=== PATIENT | male | born 1935 | race Caucasian/White ===

== ENCOUNTER 2016-11-29 17:27 | Inpatient (IN) | payer MEDICARE ==
[~2016-11-29] VITALS: Ht 167.6 cm; Wt 96.3 kg
[2016-11-29 17:29] VITALS: BP 165/77; PULSE 102; RESP 20; TEMP 98.2; O2SAT 92
[2016-11-29 21:24] VITALS: BP 125/71; PULSE 99; RESP 16; O2SAT 99
[2016-11-29] MEDS ORDERED: HYDR25TA5 PO (21:34)
[2016-11-29] MEDS ORDERED: PERP2TAB18 PO (21:34)
[2016-11-29] MEDS ORDERED: LOVA20TA PO (21:34)
[2016-11-29] MEDS ORDERED: NABU1TAB37 PO (21:34)
[2016-11-29] MEDS ORDERED: ALLO300T2 PO (21:34)
--- NOTE | 2016-11-29 21:34 | PD ---
HPI Chief Complaint: Psychiatric Symptoms Time Seen by Provider: 21:02 Travel History International Travel<30 days: No Contact w/Intl Traveler<30days: No Traveled to known affect area: No History of Present Illness HPI The patient is a 81-year-old male who presents emergency department with family from [facility] for psychiatric evaluation. The patient appears to have a history of psychosis and previous schizophrenia, according to the brother, the patient was admitted in a psychiatric hospital in [place] for approximately 6 years where he did not speak until he was placed on antipsychotics. The patient has been taking his medications regularly, until recently, and started having delusions. The patient believes that a black snake and a COBRA fluid his mouth and there are now "fighting it out "in his stomach. The patient does complain of intermittent abdominal pain secondary to the snakes fighting, but denies any headache, chest, shortness breath, nausea, vomiting, or other complaints. He denies any auditory hallucinations. He denies any suicidal or homicidal ideation. The patient had a workup performed at [facility] including CT the brain and laboratory evaluation which was apparently unremarkable and the patient was discharged with family members and advised to come to [facility]. [facility] Past Medical History Narrative Medical Psychosis Past Surgical History Narrative Surgical Noncontributory Social History Tobacco Use: No Substance Use: No Allergies-Medications (Allergen,Severity, Reaction): Coded Allergies: No Known Allergies (Unverified , 11/29/16) Reported Meds & Prescriptions Reported Meds & Active Scripts Active Reported Nabumetone 500 Mg Tab 500 Mg PO BID Hydrochlorothiazide 25 Mg Tab 25 Mg PO DAILY Allopurinol 300 Mg Tab 300 Mg PO DAILY Lovastatin 20 Mg Tab 20 Mg PO DAILY Perphenazine 2 Mg Tab 2 Mg PO Q12HR Review of Systems Except as stated in HPI: all other systems reviewed are Neg General / Constitutional: No: Fever Cardiovascular: No: Chest Pain or Discomfort Respiratory: No: Shortness of Breath Gastrointestinal: Positive: Abdominal Pain (secondary to the snakes fighting in his stomach, currently resolved), No: Nausea, Vomiting Psychiatric: Positive: Disorder of Thought, Other (active delusions), No: Suicidal Ideations, Substance Abuse, Homicidal Ideation Physical Exam Narrative GENERAL: Awake, alert, pleasant 81-year-old male who appears his stated age and is in no acute respiratory distress. SKIN: Warm and dry. HEAD: Atraumatic. Normocephalic. EYES: Pupils equal and round. No injection or drainage. ENT: No nasal bleeding or discharge. Mucous membranes pink and moist. NECK: Trachea midline. No JVD. CARDIOVASCULAR: Regular rate and rhythm. No murmur appreciated. RESPIRATORY: No accessory muscle use. Clear to auscultation. Breath sounds equal bilaterally. GASTROINTESTINAL: Abdomen soft, non-tender, nondistended. No rebound tenderness. MUSCULOSKELETAL: No obvious deformities. No clubbing. No cyanosis. No edema. NEUROLOGICAL: Awake and alert. No obvious cranial nerve deficits. Motor grossly within normal limits. Normal speech. Nonfocal. 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 PSYCHIATRIC: Appropriate mood and affect; insight and judgment normal. Data Data Last Documented VS Vital Signs Date Time Temp Pulse Resp B/P Pulse Ox O2 Delivery O2 Flow Rate FiO2 11/29/16 21:24 99 16 125/71 99 Room Air 11/29/16 17:29 98.2 Orders Psych Screen (11/29/16 21:24) MDM Medical Decision Making Medical Screen Exam Complete: Yes Emergency Medical Condition: Yes Medical Record Reviewed: Yes Interpretation(s) Records are obtained from [facility]. Chest x-ray reveals mild increased density in the left lung base may represent atelectasis or early infiltrate. CT the brain reveals no evidence of acute intracranial abnormality. At least mild global parenchymal volume loss, commensurate to age and without definite focality. Mild chronic small vessel ischemic changes. CBC reveals white count 9.7, hemoglobin 14.3, hematocrit 42.6, platelet count 172 Sodium 137, potassium 3.8, chloride 96, CO2 29, anion gap 13, glucose 131, BUN 21, creatinine 1.27, calcium 10, GFR 53.4, albumin 4.3, total protein 7.3, AST 19, ALT 13, alkaline phosphatase 103, total bili 0.5 Acetaminophen level less than 15.0 Salicylate level less than 0.3 Alcohol blood less than 10 UA negative Tox screen negative Differential Diagnosis Differential diagnosis includes schizophrenia, psychosis, delirium, intracranial tumor, noncompliance. Narrative Course The patient signed a form so we could obtain records of the CT and laboratory evaluation that was performed in [facility]. Psychiatric evaluation was ordered. The patient is medically cleared to be evaluated by psychiatry. The patient's CT the brain, chest x-ray, laboratory evaluation is unremarkable that was performed in [facility]. The patient is medically clear to be evaluated by psychiatry. Disposition as per psych. Diagnosis Primary Impression: Psychosis Qualified Code: F29 - Psychosis, unspecified psychosis type Condition: Stable Dimitry Light MD Nov 29, 2016 21:34
[2016-11-30 03:07] VITALS: BP 160/80
[2016-11-30 03:45] VITALS: BP 159/79; PULSE 91; RESP 18; TEMP 98; O2SAT 97
[2016-11-30] MEDS ORDERED: LORazepam 1 MG TAB PO PRN (04:45)
[2016-11-30] MEDS ORDERED: LORazepam 2 MG/ML VIAL IM PRN (04:45)
[2016-11-30] MEDS: ALLOPURINOL 300 MG TAB PO SCH (09:00)
[2016-11-30] MEDS: NABUMETONE 500 MG TAB PO SCH ×2 (09:00→20:39)
[2016-11-30] MEDS: NICOTINE 21 MG/24 HR PATCH T-DERMAL SCH (09:00)
[2016-11-30] MEDS: PRAVASTATIN SOD 20 MG TAB PO SCH (09:00)
[2016-11-30] MEDS: HYDROCHLOROTHIAZIDE 25 MG TAB PO SCH (09:00)
--- NOTE | 2016-11-30 18:42 | MH ---
cc: MARIA INES BOYLE DATE OF ADMISSION 11/30/2016 PRESENTING CHIEF COMPLAINT AND HISTORY OF PRESENT ILLNESS This 81-year-old white male was brought to the emergency room of this hospital by family because of increasing delusions. He was initially evaluated at [facility] where he reportedly was preoccupied with delusions believing that there were snakes in his stomach and they were fighting with each other. The medical workup done there was essentially unremarkable. This included chest x-ray which showed mild increased density in the left lung base, may represent atelectasis or early infiltrate. CT scan of the brain was negative for any acute intracranial abnormality. Global parenchymal volume loss commensurate with the patient's age, mild chronic small vessel ischemic changes, CBC with differential unremarkable. Urine drug screen negative. Blood alcohol level less than three. In the emergency room of this hospital, he was also evaluated by the physician and was considered medically stable for discharge. While in the emergency room, he was also evaluated by psychiatric screener and the case was discussed with me. The family reported that he was previously admitted to psychiatric facility in [place] for six years. He has not been taking any psychotropic medications or following up with a psychiatrist recently. According to psychiatric screener, he seemed well oriented and understood the nature of his illness and the need for psychiatric hospitalization, however, the Koch Act was initiated because he could not " ". Prior to evaluation, case was discussed with the nursing staff on the unit who indicated since admission he has been calm and cooperative, although very preoccupied with delusions believing that snakes were in his body and "they were fighting it out". He has not exhibited any aggressive or self-destructive behavior nor has he made any threats of harm to self or others. Present during this evaluation was NILS Cai. At the time of this evaluation, Mr. Snow was pleasant and cooperative. He was in the psychiatric hospital and, when asked about his understanding of the reason for this hospitalization he responded, "I am here because there are snakes in my body. One of them is called Cobra. They are fighting it out. One of the snakes went into my brain". He could not give a clear picture as to how long he has been experiencing this "it has been going on for long time". He denied experiencing any auditory hallucinations. He stated that he has not been sleeping too well lately. On direct questioning, he denied any persistent feelings of sadness or irritability. He denied entertaining any suicidal thoughts or any previous suicide attempts. On further questioning, he did not give any history suggestive of bipolar affective disorder. PAST PSYCHIATRIC HISTORY He was somewhat sketchy in regards to the onset of his psychiatric illness. He did acknowledge that he was once admitted to a psychiatric facility in [place] for six years. He could not give detailed information in regards to his symptoms leading to that hospitalization. Since then, he has been admitted to various psychiatric facilities including one to [place], [place]. Again, he could not give much information regarding his symptoms or the medication he received while there. From what the psychiatric screener could obtain, he was on Trilitron 2 mg twice a day which he had discontinued. It is not clear as to whether or not he is seeing any psychiatrist as an outpatient either. PAST MEDICAL HISTORY He has history of hypertension, gout and hyperlipidemia. He denied any drug allergies. He had some unspecified surgery on his hand due to a dog bite. FAMILY HISTORY His father is . He lives with his mother and a brother and brother's . He has another brother who lives in [facility]. He denied any family history of psychiatric illness or substance abuse. PERSONAL AND SOCIAL HISTORY He grew up in [place]. He gave inconsistent responses in regards to his education level, i.e., initially stated that he went up to 4th grade but then stated that he finished high school. He stated he was "slow learner". 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 He is on disability. He has never been and has no children. He denied any alcohol or drug abuse. He denied any history of involvement with the law. CLINICAL OBSERVATION/MENTAL STATUS EXAM At the time of this evaluation, Mr. Snow presented as a casually dressed, reasonably well-groomed white male who looked his stated age. He was overall pleasant, polite and cooperative with this interviewer. He displayed somewhat limited ability to give details in regards to symptomatology during previous hospitalizations/medications. No overt anger or hostility was noticed. No bizarre behavioral or mannerisms were noticed. His speech was coherent and appropriate. His affect was pleasant. He showed full range of emotions, i.e., smiled and laughed frequently. Subjectively, he described his mood as "I've been feeling just fine". Thought processes did not reveal any looseness of association or flight of ideas. As mentioned, he was preoccupied with delusions believing that there were snakes in his stomach and they were fighting with each other. No auditory or visual hallucinations were noticed or reported. He denied active suicidal or homicidal ideations or intent at this time. He denied any previous suicide attempts. Cognitive functions - he was alert, oriented to place and person, not to time. He initially stated that he did not know what month it was, but when told it was November he accepted it. Memory - immediate he could do 4 digits forward, 3 digits backward. Recent, he could recall 3/3 objects after 10 minutes. Remote, he could recall presidents up to President Inocente Chaparro. His attention and concentration was somewhat impaired. He could not do simple calculations i.e. 9+8 he could not, however, 10+10 he could do i.e., "20". He could not abstract proverbs. His fund of knowledge was also felt to be somewhat limited, for example, he did not know the capital of [facility], but when given hint as to where [place] was he said "yes, it is in [place]". His judgment and insight was felt to be fair. REVIEW OF SYSTEMS He denied any diarrhea, vomiting or abdominal pain. He denied any dysuria, hematuria or frequency. He denied any chest pain, palpitation, dyspnea on exertion. He denied muscle weakness, numbness or any history of seizures. PHYSICAL EXAMINATION Physical examination was not done as this has already been done in the emergency room. No acute medical issues identified. No gross neurological deficits noticed at this time. DIAGNOSTIC IMPRESSION [place] I: Schizophrenia chronic undifferentiated type acute exacerbation. [place] II: Mild mental retardation. [place] III: Hypertension, hyperlipidemia, gout. [place] IV: Severity of psychosocial stressors moderate i.e. chronic psychiatric illness, limited financial resources. [place] V: Current GAF score 40. FORMULATION AND TREATMENT PLAN Based on this evaluation and the background information available to me at this time, Mr. Snow is experiencing delusions which appears to be fixed. He has previously been admitted to various psychiatric facilities, however, the details of the circumstances leading to those hospitalizations/symptomatology is not very clear at this time. He reportedly carries a diagnosis of schizophrenia. The current decompensation appears to be due to noncompliance with medication/outpatient follow up. To control his psychotic symptoms, he will be started on Risperdal and the dose will be gradually titrated up as warranted by his condition. Simultaneously, he will be involved in individual psychotherapy primarily supportive and educative in nature. He will participate in various other unit activities i.e. occupational therapy, recreational therapy, group therapy. He is exhibiting mild cognitive deficits which could be related to his lower intellectual level. As such, basic dementia workup will be ordered. IDENTIFIED PROBLEMS 1. Psychosis. 2. Current psychosocial stressors. ASSETS 1. He is verbal. 2. Supportive family Estimated length of stay is 5-7 days. MD ANDREEA Bhakta/ /4:18 PM /6:06 PM
[2016-11-30 19:01] VITALS: BP 138/73; PULSE 78; RESP 18; TEMP 98.9; O2SAT 100
[2016-11-30] MEDS: REMOVE OLD NICOTINE PATCH T-DERMAL SCH (20:40)
[2016-11-30] MEDS: risperiDONE ODT 0.25 MG TAB PO SCH (21:00)
[2016-12-01 05:41] VITALS: BP 115/79; PULSE 94; RESP 18; TEMP 97.5; O2SAT 100
[2016-12-01 07:50] LABS: AUTOMATED NEUTROPHIL # 5.5 TH/MM3 (1.8-7.7); BASOPHIL % 0.4 % (0.0-2.0); EOSINOPHIL # 0.7 TH/MM3 (0-0.4); EOSINOPHIL % 6.7 % (0.0-4.0); HEMATOCRIT 43.8 % (39.0-51.0); HEMO FLAGS DIFF FINAL; LYMPH % 25.9 % (9.0-44.0); LYMPHOCYTE # 2.5 TH/MM3 (1.0-4.8); MEAN CELL VOLUME 95.4 FL (80.0-100.0); MEAN CORPUSCULAR HEMOGLOBIN 31.9 PG (27.0-34.0); MEAN CORPUSCULAR HGB CONC 33.5 % (32.0-36.0); PLATELET COUNT 183 TH/MM3 (150-450); RED BLOOD COUNT 4.59 MIL/MM3 (4.50-5.90); RED CELL DISTRIBUTION WIDTH 14.7 % (11.6-17.2); WHITE BLOOD COUNT 9.7 TH/MM3 (4.0-11.0)
[2016-12-01 08:24] LABS: ALKALINE PHOSPHATASE 102 U/L (45-117); ALT (GPT) 20 U/L (12-78); ANION GAP 7 MEQ/L (5-15); AST (GOT) 22 U/L (15-37); BICARBONATE 33.2 MEQ/L (21.0-32.0); BLOOD UREA NITROGEN 17 MG/DL (7-18); CHLORIDE 98 MEQ/L (98-107); FREE T4 1.17 NG/DL (0.76-1.46); GLOMERULAR FILTRATION RATE 60 ML/MIN (>89); HDL CHOLESTEROL 60.9 MG/DL (40.0-60.0); LDL CHOLESTEROL 43 MG/DL (0-99); MAGNESIUM 1.6 MG/DL (1.5-2.5); POTASSIUM 4.4 MEQ/L (3.5-5.1); SODIUM (NA) 138 MEQ/L (136-145); TOTAL BILIRUBIN ADULT 0.6 MG/DL (0.2-1.0)
[2016-12-01 08:43] LABS: FREE T4 1.17 NG/DL (0.76-1.46)
[2016-12-01] MEDS: NABUMETONE 500 MG TAB PO SCH ×2 (09:00→20:35)
[2016-12-01] MEDS: ALLOPURINOL 300 MG TAB PO SCH (09:00)
[2016-12-01] MEDS: NICOTINE 21 MG/24 HR PATCH T-DERMAL SCH (09:00)
[2016-12-01] MEDS: risperiDONE ODT 0.25 MG TAB PO SCH ×2 (09:00→20:35)
[2016-12-01] MEDS: PRAVASTATIN SOD 20 MG TAB PO SCH (09:00)
[2016-12-01] MEDS: HYDROCHLOROTHIAZIDE 25 MG TAB PO SCH (09:00)
[2016-12-01] MEDS ORDERED: INFLUENZA VIRUS VACCINE (QUADRIVALENT) 0.5 ML SYR IM ONE (10:00)
[2016-12-01] MEDS ORDERED: PNEUMOCOCCAL POLYVALENT INJ 25 MCG/0.5 ML SYR IM ONE (10:00)
[2016-12-01 14:32] LABS: HEMOGLOBIN A1a 0.9 %; HEMOGLOBIN A1b 0.8 %; HEMOGLOBIN Ao 85.7 %; HEMOGLOBIN LA1C 2.1 %; HEMOGLOBIN P3 3.7 %
--- NOTE | 2016-12-01 14:50 | EKG ---
Date Performed: 11/30/2016 Time Performed: 20:04:48 PTAGE: 81 years EKG: ATRIAL FIBRILLATION POSSIBLE RIGHT VENTRICULAR CONDUCTION DELAY NONSPECIFIC T-WAVE ABNORMAL ITY ABNORMAL RHYTHM ECG NO PREVIOUS TRACING DOCTOR: Ben Nye Interpretating Date/Time 12/01/2016 14:47:10
[2016-12-01 18:08] VITALS: BP 121/64; PULSE 68; RESP 18; TEMP 98.1; O2SAT 99
[2016-12-01] MEDS: TEMAZEPAM 15 MG CAP PO PRN (20:35)
[2016-12-01] MEDS: REMOVE OLD NICOTINE PATCH T-DERMAL SCH (21:00)
[2016-12-02 05:55] VITALS: BP 112/57; PULSE 88; RESP 16; TEMP 97.3; O2SAT 98
[2016-12-02] MEDS: risperiDONE ODT 0.25 MG TAB PO SCH ×2 (08:51→20:32)
[2016-12-02] MEDS: NABUMETONE 500 MG TAB PO SCH ×2 (08:51→20:32)
[2016-12-02] MEDS: HYDROCHLOROTHIAZIDE 25 MG TAB PO SCH (08:52)
[2016-12-02] MEDS: PRAVASTATIN SOD 20 MG TAB PO SCH (08:52)
[2016-12-02] MEDS: NICOTINE 21 MG/24 HR PATCH T-DERMAL SCH (08:52)
[2016-12-02] MEDS: ALLOPURINOL 300 MG TAB PO SCH (08:52)
[2016-12-02 15:04] LABS: RAPID PLASMA REAGIN SCREEN NON-REACTIVE (NON-REACTVE)
[2016-12-02 15:56] LABS: ANA SCREEN NEG (NEG)
--- NOTE | 2016-12-02 16:17 | PD.CONS ---
HPI Service [facility] Hospitalists Consult Requested By Dr. Albino Anna Reason for Consult Abnormal EKG Primary Care Physician Adams Montoya MD Diagnoses: History of Present Illness Mr. Snow is a 81 y/o WM with Schizophrenia, HTN, Hyperlipidemia, and gout who presented to the ED with family from [facility] for psychiatric evaluation. The patient has a history of psychosis and schizophrenia and was previously admitted in a psychiatric hospital in [place] for approximately 6 years where he reportedly did not speak until he was placed on antipsychotics. According to the ER notes the patient had been taking his medications regularly , up until recently and started having delusions. The patient believes that he has two snakes that are "fighting it out "in his stomach and have been doing so "for years." The patient does complain of intermittent abdominal pain secondary to the snakes fighting, but denies any headache, chest pain, palpitations, shortness breath, nausea, vomiting, or auditory hallucinations. He denies any suicidal or homicidal ideation. The patient had a workup performed at [facility], which included a chest x-ray which showed mild increased density in the left lung base, may represent atelectasis or early infiltrate. CT scan of the brain was negative for any acute intracranial abnormality, global parenchymal volume loss commensurate with the patient's age , mild chronic small vessel ischemic changes. CBC reveals white count 9.7, hemoglobin 14.3, hematocrit 42.6, platelet count 172. CMP noted Sodium 137, potassium 3.8, chloride 96, CO2 29, anion gap 13, glucose 131, BUN 21, creatinine 1.27, calcium 10, GFR 53.4, albumin 4.3, total protein 7.3, AST 19, ALT 13, alkaline phosphatase 103, total bili 0.5. Acetaminophen level less than 15.0. Salicylate level less than 0.3. Alcohol blood less than 10 UA negative. The patient was discharged with family members and advised to come to [facility]. In the ED here the pt had an EKG which indicated atrial fibrillation with possible right ventricular conduction delay. Pt does not have any history of atrial fibrillation. Review of Systems ROS Limitations: Poor Historian Respiratory: DENIES: Shortness of breath Cardiovascular: DENIES: Chest pain, Palpitations Gastrointestinal: COMPLAINS OF: Abdominal pain Past Family Social History Past Medical History Schizophrenia with psychosis HTN Hyperlipidemia Gout Arthritis Depression Past Surgical History Foot surgery Tonsillectomy Reported Medications -Nabumetone 500 Mg Tab 500 Mg PO BID -Hydrochlorothiazide 25 Mg Tab 25 Mg PO DAILY -Allopurinol 300 Mg Tab 300 Mg PO DAILY -Lovastatin 20 Mg Tab 20 Mg PO DAILY --Perphenazine-Amitriptyline 2-25 Mg PO Q12HR Allergies: Coded Allergies: No Known Allergies (Unverified , 11/29/16) Family History Noncontributory Social History No reported alcohol, tobacco or illicit drug use Physical Exam Vital Signs Vital Signs Date Time Temp Pulse Resp B/P Pulse Ox O2 Delivery O2 Flow Rate FiO2 12/02/16 05:55 97.3 88 16 112/57 98 12/01/16 18:08 98.1 68 18 121/64 99 Physical Exam GENERAL: This is a well-nourished, well-developed patient, in no apparent distress. HEENT: Atraumatic. Normocephalic. No temporal or scalp tenderness. No scleral icterus. Airway patent. NECK: Trachea midline, supple, nontender. CARDIO: Irregular. RESP: CTA bilaterally. No wheezes, rales, or rhonchi. ABD: +BS, soft, non-tender, nondistended. EXT: Extremities without clubbing, cyanosis, or edema. NEURO: Awake and alert. Motor and sensory grossly within normal limits. Normal speech. Laboratory Laboratory Tests Test 12/01/16 07:07 White Blood Count 9.7 TH/MM3 Red Blood Count 4.59 MIL/MM3 Hemoglobin 14.7 GM/DL Hematocrit 43.8 % Mean Corpuscular Volume 95.4 FL Mean Corpuscular Hemoglobin 31.9 PG Mean Corpuscular Hemoglobin 33.5 % Concent Red Cell Distribution Width 14.7 % Platelet Count 183 TH/MM3 Mean Platelet Volume 8.2 FL Neutrophils (%) (Auto) 57.0 % Lymphocytes (%) (Auto) 25.9 % Monocytes (%) (Auto) 10.0 % Eosinophils (%) (Auto) 6.7 % Basophils (%) (Auto) 0.4 % Neutrophils # (Auto) 5.5 TH/MM3 Lymphocytes # (Auto) 2.5 TH/MM3 Monocytes # (Auto) 1.0 TH/MM3 Eosinophils # (Auto) 0.7 TH/MM3 Basophils # (Auto) 0.0 TH/MM3 CBC Comment DIFF FINAL Differential Comment Erythrocyte Sedimentation Rate 11 mm/hr Sodium Level 138 MEQ/L Potassium Level 4.4 MEQ/L Chloride Level 98 MEQ/L Carbon Dioxide Level 33.2 MEQ/L Anion Gap 7 MEQ/L Blood Urea Nitrogen 17 MG/DL Creatinine 1.17 MG/DL Estimat Glomerular Filtration 60 ML/MIN Rate Random Glucose 114 MG/DL Hemoglobin A1c 5.6 % Calcium Level 9.6 MG/DL Phosphorus Level 2.8 MG/DL Magnesium Level 1.6 MG/DL Total Bilirubin 0.6 MG/DL Aspartate Amino Transf 22 U/L (AST/SGOT) Alanine Aminotransferase 20 U/L (ALT/SGPT) Alkaline Phosphatase 102 U/L Total Protein 7.3 GM/DL Albumin 3.7 GM/DL Triglycerides Level 50 MG/DL Cholesterol Level 114 MG/DL LDL Cholesterol 43 MG/DL HDL Cholesterol 60.9 MG/DL Cholesterol/HDL Ratio 1.87 RATIO Vitamin B12 Level 744 PG/ML Folate GREATER THAN 20.0 NG/ML Free Thyroxine 1.17 NG/DL Thyroid Stimulating Hormone 3.190 uIU/ML 3rd Gen Anti-Nuclear Antibody Screen NEG Rapid Plasma Reagin NON-REACTIVE Result Diagram: 12/01/1670612/01/16706 Assessment and Plan Problem List: (1) Psychosis Status: Acute Plan: - Pt admitted to psychiatry unit for fixed delusions with reported hx of Schizophrenia. The pt has reportedly been noncompliant with medications. - Management per psychiatry. (2) Atrial fibrillation, controlled Status: Acute Plan: - EKG in the ED indicated atrial fibrillation, rate controlled. - This appears to be a new issue. No previous records of A. fib - TSH/Free T4 are WNL. - Start Metoprolol 12.5mg po BID and stop HCTZ - Monitor BP closely as pt has been running low/normal. - We will start ASA 81mg po daily - He will need to followup as an outpt with Cardiology upon discharge. (3) Schizophrenia Status: Chronic Plan: - Management per Psychiatry (4) HTN (hypertension) Status: Chronic (5) Hyperlipidemia Status: Chronic Assessment and Plan Patient examined. Assessment and plan formulated with Alix Garrison PA-C. I agree with the above. Problem Qualifiers (1) Psychosis: Qualified Code: F29 - Psychosis, unspecified psychosis type Alix Garrison Dec 02, 2016 16:17 Dylan Figueroa DO Dec 05, 2016 23:06
[2016-12-02] MEDS ORDERED: ASPIRIN EC 81 MG TABEC PO ONE (17:00)
[2016-12-02] MEDS ORDERED: PILL SPLITTER OTHER PRN (17:15)
[2016-12-02 17:54] VITALS: BP 153/93; PULSE 83; RESP 16; TEMP 97.4; O2SAT 99
[2016-12-02] MEDS: TEMAZEPAM 15 MG CAP PO PRN (20:32)
[2016-12-02] MEDS: METOPROLOL TARTRATE 25 MG TAB PO SCH (20:32)
[2016-12-02] MEDS: REMOVE OLD NICOTINE PATCH T-DERMAL SCH (20:32)
[2016-12-03 06:34] VITALS: BP 105/63; PULSE 94; RESP 18; TEMP 97.5; O2SAT 94
[2016-12-03] MEDS ORDERED: ASPIRIN EC 81 MG TABEC PO SCH (09:00)
[2016-12-03] MEDS: NICOTINE 21 MG/24 HR PATCH T-DERMAL SCH (09:00)
[2016-12-03] MEDS: NABUMETONE 500 MG TAB PO SCH ×2 (09:00→20:47)
[2016-12-03] MEDS: ALLOPURINOL 300 MG TAB PO SCH (09:13)
[2016-12-03] MEDS: PRAVASTATIN SOD 20 MG TAB PO SCH (09:13)
[2016-12-03] MEDS: METOPROLOL TARTRATE 25 MG TAB PO SCH (09:13)
--- NOTE | 2016-12-03 16:29 | MB ---
cc: CHELITA TERRY MD DATE OF CONSULTATION: 12/03/2016 REASON FOR CONSULTATION: HISTORY This is a 81-year-old gentleman who is admitted to the hospital for delusions. He felt that he had snakes inside that were doing [place]. He was initially admitted to [facility] but was brought to [place] where he subsequently has been admitted to the psychiatric unit. We have been asked to see him in that his initial electrocardiogram demonstrated atrial fibrillation. The patient is a rather poor historian. He denies any history of heart problems and has no symptoms to suggest chest pain, palpitations, lightheadedness or dizziness. His heart rates have been very well controlled and his blood pressure has been normal. No prior history of diabetes, CVA or heart failure have been present. Review of his electrocardiogram demonstrates atrial fibrillation with a controlled ventricular response and a right bundle-branch block. No evidence of heart failure has been present. His chest x-ray has been unremarkable. PAST MEDICAL HISTORY: Otherwise has been stated that he has a history of hypertension, however, this is not borne out by the chart. MEDICATIONS AT HOME: 1. Lovastatin. 2. Hydrochlorothiazide. 3. Allopurinol 4. Nabumetone. ALLERGIES: None. SOCIAL HISTORY: The patient does not smoke, drink or use recreational drugs. PHYSICAL EXAMINATION: He is awake, alert, very cooperative. VITAL SIGNS: Blood pressure is 105/63, pulse approximately 80 and irregular. NECK: There is no neck vein distension. LUNGS: Clear. CARDIOVASCULAR: Irregular rate and rhythm with no murmur or gallop noted. EXTREMITIES: No edema. Peripheral pulses are intact. ASSESSMENT: The patient has atrial fibrillation with a controlled ventricular response at this point in time. His TYRONE 2 Vasc Score equals 1 for age. At this point in time, I do not feel that he will need anticoagulants for thromboembolic control, in any event given his psychiatric problems, reliable use of anticoagulants is probably not a good idea unless they are delivered in a strictly controlled environment. I have ruled in echocardiogram for routine purposes. No further therapy or treatment needs to be done for his atrial fibrillation. MD KEVIN Mcallister/MADELIN /2:15 PM /3:58 PM
[2016-12-03 17:55] VITALS: BP 101/58; PULSE 56; RESP 18; TEMP 98; O2SAT 100
--- NOTE | 2016-12-03 19:01 | EC ---
Study Study Date:12/03/2016 STUDY CONCLUSIONS SUMMARY LEFT VENTRICLE: The cavity size was normal. Wall thickness was normal. Systolic function was mildly reduced. The estimated ejection fraction was in the range of 45% to 50%. Wall motion was normal; there were no regional wall motion abnormalities. If LV function is below 40, please consider prescribing an ACEI or ARB or document rationale for non-use. PROCEDURE DATA STUDY STATUS: Elective. Procedure: Transthoracic echocardiography. Image quality was poor. Scanning was performed from the parasternal, apical, and subcostal acoustic windows. Study completion: The patient tolerated the procedure well. Transthoracic echocardiography. M-mode, complete 2D, complete spectral Doppler, and color Doppler. Height: Height: 66in. Weight: Weight: 206.6lb. Body mass index: BMI: 33.4kg/m^2. Body surface area: BSA: 2.03m^2. Patient status: Inpatient. CARDIAC ANATOMY LEFT VENTRICLE: The cavity size was normal. Wall thickness was normal. Systolic function was mildly reduced. The estimated ejection fraction was in the range of 45% to 50%. Wall motion was normal; there were no regional wall motion abnormalities. AORTIC VALVE: Trileaflet; mildly thickened, mildly calcified leaflets. Doppler: Transvalvular velocity was within the normal range. There was no stenosis. No regurgitation. AORTA: Aortic root: The aortic root was normal in size. MITRAL VALVE: Structurally normal valve. Doppler: Transvalvular velocity was within the normal range. There was no evidence for stenosis. No regurgitation. Peak gradient: 3mm Hg (D). LEFT ATRIUM: The atrium was normal in size. RIGHT VENTRICLE: The cavity size was normal. Wall thickness was normal. PULMONIC VALVE: Doppler: Transvalvular velocity was within the normal range. There was no evidence for stenosis. No regurgitation. TRICUSPID VALVE: Structurally normal valve. Doppler: Transvalvular velocity was within the normal range. No regurgitation. PULMONARY ARTERY: The main pulmonary artery was normal-sized. Systolic pressure was within the normal range. RIGHT ATRIUM: The atrium was normal in size. PERICARDIUM: There was no pericardial effusion. SYSTEMIC VEINS: Inferior vena cava: The vessel was normal in size. Patient weight: 206.6lb _Ejection fraction:_ 65-75% _Fractional shortening:_ 32% up to 5Kg 5-11.5Kg 11.6-22.9Kg 23-45Kg 45-57Kg Aortic Root 7-13 <17 13-22 17-27 17-27 LA diam 6-13 <23 24-38 33-47 37-40 RVID 10-17 7-15 7-15 7-18 8-17 LVIDd 12-22 <32 24-38 33-47 37-40 LVPW 2-4 3-6 5-7 6-8 7-8 IVS 2-4 3-6 5-7 6-8 7-8 BASIC MEASUREMENTS ADULT Normal Left ventricle LV internal dimension, ED, chordal level, 48.5 mm 43-52 PLAX LV internal dimension, ES, chordal level, *39.4 mm 23-38 PLAX Fractional shortening, chordal level, PLAX *19 % >29 LV posterior wall thickness, ED 6.54 mm IVS/LVPW ratio, ED 1.05 <1.3 Ventricular septum Septal thickness, ED 6.84 mm Aortic valve Leaflet separation 19 mm 15-26 Right ventricle RV internal dimension, ED, PLAX 23.4 mm 19-38 BASIC MEASUREMENTS ADULT Normal Aortic valve Leaflet separation 19 mm 15-26 Aorta Root diameter, ED 33 mm 20-37 Left atrium Anterior-posterior dimension, ES 29 mm 19-40 Anterior-posterior dimension index, ES 1.43 cm/m^2 <2.2 LA/aortic root ratio 0.88 DOPPLER MEASUREMENTS ADULT Normal Main pulmonary artery Pressure, S 24 mm Hg =30 Aortic valve Peak velocity, S 99.1 cm/s Regurgitant velocity, ED 340 cm/s Regurgitant deceleration 657 cm/s^2 Regurgitant pressure half-time 1600 ms Regurgitant gradient, ED 46 mm Hg Mitral valve Peak E-wave velocity 83.4 cm/s Peak A-wave velocity 82.4 cm/s Deceleration time *239 ms 150-230 Peak gradient, D 3 mm Hg Peak E/A ratio 1 Tricuspid valve Regurgitant peak velocity 189 cm/s Peak RV-RA gradient, S 14 mm Hg Maximal regurgitant velocity 189 cm/s Systemic veins Estimated CVP 10 mm Hg Right ventricle RV pressure, S 26 mm Hg <30 Pulmonic valve Peak velocity, S 73.3 cm/s LEGEND: Mean values are shown as u=mean value. Asterisk (*) daniels values outside specified normal range. Prepared and signed by Jared Dyer [id number]
[2016-12-03] MEDS: REMOVE OLD NICOTINE PATCH T-DERMAL SCH (20:47)
[2016-12-03] MEDS: APIXABAN 5 MG TABLET PO SCH (21:54)
[2016-12-04 05:56] VITALS: BP 109/56; PULSE 61; RESP 18; TEMP 97.1; O2SAT 98
[2016-12-04] MEDS: NICOTINE 21 MG/24 HR PATCH T-DERMAL SCH (09:00)
[2016-12-04] MEDS: NABUMETONE 500 MG TAB PO SCH ×2 (09:22→20:34)
[2016-12-04] MEDS: ALLOPURINOL 300 MG TAB PO SCH (09:22)
[2016-12-04] MEDS: PRAVASTATIN SOD 20 MG TAB PO SCH (09:22)
[2016-12-04] MEDS: APIXABAN 5 MG TABLET PO SCH (09:22)
[2016-12-04 14:23] LABS: BACTERIA, URINE RARE /hpf; BLOOD, URINE TRACE (NEG); COMMENT (UR) CULT NOT INDICATED; CULTURE IF INDICATED CULT NOT INDICATED; GLUCOSE,URINE NEG (NEG); KETONE, URINE NEG (NEG); MUCUS URINE FEW /lpf (OCC); NITRITE,URINE NEG (NEG); PH, URINE 6.5 (5.0-8.5); SQUAMOUS EPITHELIAL CELL URINE 1 /hpf (0-5); URINE COLOR YELLOW (YELLW/STRAW)
[2016-12-04 16:56] VITALS: BP 118/58; PULSE 71; RESP 16; TEMP 97.4; O2SAT 98
[2016-12-04] MEDS: REMOVE OLD NICOTINE PATCH T-DERMAL SCH (20:32)
[2016-12-05 05:19] VITALS: BP 134/70; PULSE 70; RESP 17; TEMP 75.4; O2SAT 96
[2016-12-05] MEDS: NABUMETONE 500 MG TAB PO SCH ×2 (08:47→20:49)
[2016-12-05] MEDS: PRAVASTATIN SOD 20 MG TAB PO SCH (08:47)
[2016-12-05] MEDS: ALLOPURINOL 300 MG TAB PO SCH (08:47)
[2016-12-05] MEDS: PERPHENAZINE 4 MG TAB PO SCH (08:47)
[2016-12-05] MEDS: NICOTINE 21 MG/24 HR PATCH T-DERMAL SCH (08:48)
[2016-12-05] MEDS: REMOVE OLD NICOTINE PATCH T-DERMAL SCH (20:49)
[2016-12-05 21:48] VITALS: BP 155/73; PULSE 86; RESP 18; TEMP 97.2; O2SAT 99
[2016-12-06 06:21] VITALS: BP 111/58; PULSE 99; RESP 16; TEMP 97.3; O2SAT 94
[2016-12-06] MEDS: NICOTINE 21 MG/24 HR PATCH T-DERMAL SCH (09:00)
[2016-12-06] MEDS: PRAVASTATIN SOD 20 MG TAB PO SCH (09:30)
[2016-12-06] MEDS: PERPHENAZINE 4 MG TAB PO SCH ×2 (09:30→20:15)
[2016-12-06] MEDS: ALLOPURINOL 300 MG TAB PO SCH (09:30)
[2016-12-06] MEDS: NABUMETONE 500 MG TAB PO SCH ×2 (09:30→20:15)
[2016-12-06 19:24] VITALS: BP 125/69; PULSE 83; RESP 17; TEMP 97; O2SAT 99
[2016-12-06] MEDS: REMOVE OLD NICOTINE PATCH T-DERMAL SCH (20:18)
[2016-12-07 06:24] VITALS: BP 112/53; PULSE 84; RESP 16; TEMP 98.1; O2SAT 97
[2016-12-07] MEDS: NICOTINE 21 MG/24 HR PATCH T-DERMAL SCH (09:00)
[2016-12-07] MEDS: PERPHENAZINE 4 MG TAB PO SCH ×2 (09:11→21:24)
[2016-12-07] MEDS: ALLOPURINOL 300 MG TAB PO SCH (09:11)
[2016-12-07] MEDS: NABUMETONE 500 MG TAB PO SCH ×2 (09:11→21:24)
[2016-12-07] MEDS: PRAVASTATIN SOD 20 MG TAB PO SCH (09:11)
[2016-12-07] MEDS: REMOVE OLD NICOTINE PATCH T-DERMAL SCH (09:55)
[2016-12-07 21:32] VITALS: BP 115/56; PULSE 74; RESP 16; TEMP 97.4; O2SAT 96
[2016-12-08 06:00] VITALS: BP 96/52; PULSE 84; RESP 18; TEMP 97.9; O2SAT 96
[2016-12-08] MEDS: PRAVASTATIN SOD 20 MG TAB PO SCH (08:38)
[2016-12-08] MEDS: PERPHENAZINE 4 MG TAB PO SCH ×2 (08:38→21:32)
[2016-12-08] MEDS: ALLOPURINOL 300 MG TAB PO SCH (08:38)
[2016-12-08] MEDS: NABUMETONE 500 MG TAB PO SCH ×2 (08:38→21:31)
[2016-12-08 17:59] VITALS: BP 136/90; PULSE 84; RESP 18; TEMP 97.2
[2016-12-09 06:13] VITALS: BP 120/65; PULSE 89; RESP 17; TEMP 97.4; O2SAT 98
[2016-12-09] MEDS: ALLOPURINOL 300 MG TAB PO SCH (08:56)
[2016-12-09] MEDS: NABUMETONE 500 MG TAB PO SCH (08:56)
[2016-12-09] MEDS: PERPHENAZINE 4 MG TAB PO SCH (08:56)
[2016-12-09] MEDS: PRAVASTATIN SOD 20 MG TAB PO SCH (08:57)
[2016-12-09] MEDS ORDERED: PERP4TAB8 PO (13:23)
[2016-12-09] MEDS ORDERED: NABU1TAB37 PO ×2 (13:23→13:38)
[2016-12-09] MEDS ORDERED: REST15CA PO (13:23)
[2016-12-09] MEDS ORDERED: PRAV20TA PO ×2 (13:23→13:40)
[2016-12-09] MEDS ORDERED: ALLO300 PO ×2 (13:23→13:35)
[2016-12-09] MEDS ORDERED: PERP2TAB18 PO (13:38)
[2016-12-09] MEDS ORDERED: TEMA15CA PO (14:14)
--- NOTE | 2016-12-09 20:20 | MD ---
cc: RAMSESJOSSIEMARIA INES ADMISSION DATE: 11/30/2016 DISCHARGE DATE: 12/09/2016 ADMISSION DIAGNOSIS Fabius I: Schizophrenia chronic undifferentiated type acute exacerbation. Fabius II: Mild mental retardation. Fabius III: Hypertension, hyperlipidemia, gout. Fabius IV: Severity of psychosocial stressors moderate i.e. chronic psychiatric illness, limited financial resources. Fabius V: Current GAF score 40. DISCHARGE DIAGNOSIS Fabius I: Schizophrenia chronic undifferentiated type acute exacerbation. Fabius II: Mild mental retardation. Fabius III: Hypertension, hyperlipidemia, gout, atrial fibrillation. Fabius IV: Severity of psychosocial stressors moderate i.e. chronic psychiatric illness, limited financial resources. Fabius V: Current GAF score of 60. This 81-year-old white male was brought to the emergency room this hospital by his family because of increasing delusions. He was initially evaluated at [facility] where he reportedly was preoccupied with delusions, believing that there were snakes in his stomach and they were fighting with each other. The medical workup done there was essentially unremarkable. This included chest x-ray which showed mild increased density in the left lung base, may represent atelectasis or early infiltrate. CT scan of the brain was negative for any acute intracranial abnormality. Please refer to my initial evaluation for details. LABORATORY FINDINGS CBC with differential unremarkable. ESR normal. CMP unremarkable. Vitamin B12 levels normal. Folate levels normal. T4, TSH unremarkable. KRISTEN negative. RPR nonreactive. EKG on 11/30/2016 showed atrial fibrillation. Possible right ventricular conduction delay, nonspecific T-wave abnormality. Cardiology consult was requested from Dr. Martin Zelaya and he opined that there was no need for anticoagulants for thromboembolic control. Echocardiogram was reported as normal cavity size, normal wall thickness, systolic function was mildly reduced, ejection fraction 45-50, normal wall motion. There was no regional wall motion abnormalities. HOSPITAL COURSE When initially evaluated he was overall pleasant but very the preoccupied with delusions believing that there was snakes inside his stomach and sometimes they would fight and other times they would move to his heart. To reduce his psychotic symptoms he was started on Risperdal. He began to respond to it somewhat and his brother and [id number] were invited to the treatment team meeting. They reported that he had been on Trilafon which he had discontinued. According to them this was the best medicine for him. I explained to them the risks, benefits and alternatives of Trilafon compared to the Risperdal but they and the patient preferred that he be switched to Trilafon and as such it was done. The dose was gradually increased to 4 mg a day. There is a noticeable improvement in his delusional thinking pertaining to the snakes in his body. At one-point he started growing a herrera which again was based on his delusional thinking as he believed that if he shaved his herrera the snakes would bite him. This delusional thinking subsided gradually and towards the end of this admission he was no longer entertaining these delusions. Throughout this hospital stay he was overall very pleasant, polite and cooperative. He did not exhibit any aggressive or self-destructive behavior. Towards the end he also became quite focused on discharge as according to him, he was feeling much better. It was felt by the treatment team that he has received optimum benefit out of this admission and as such could be discharged home with following recommendations; follow up with psychiatrist at [facility], individual therapy through [facility], medical followup with his primary care physician. MEDICATIONS His discharge medications are: 1. Zyloprim 300 mg p.o. daily, a 14 days supply. 2. Nabumetone 500 mg b.i.d., a 14 days supply. 3. Trilafon 2 mg p.o. b.i.d., a 14 days supply, one refill. 4. Pravachol 20 mg p.o. daily, 14 days supply. 5. Restoril 15 mg p.o. q.h.s. p.r.n. for insomnia #10. He is to follow up with Dr. Zelaya auto clocks repairer in two weeks. MD ANDREEA Bhakta/LILI /7:30 PM /7:56 PM
== END 2016-12-09 14:40 | disposition home or self-care (01) | DRG 885 ==
LOC: NEPA 17:27 → NEDA 11-30 02:19 → H270 11-30 03:45 → H260 12-02 21:18
PROVIDERS: ADMIT Psychiatry & Neurology Psychiatry; ATTEND Psychiatry & Neurology Psychiatry
DX: F20.5 Residual schizophrenia (principal); I48.91 Unspecified atrial fibrillation; F70 Mild intellectual disabilities; I10 Essential (primary) hypertension; M10.9 Gout, unspecified; E78.5 Hyperlipidemia, unspecified; Z23 Encounter for immunization; Z91.14 Patient's other noncompliance with medication regimen; Z91.19 Patient's noncompliance with other medical treatment and regimen
CPT/HCPCS: 80053; 80061; 81001; 82607; 82746; 83036; 83735; 84100; 84439; 84443; 85025; 85652; 86038; 86592; 90686; 90732; 93005; 93306; 99284; Q0175; Q2038